=== PATIENT | male | born 1985 | race Caucasian/White ===

== ENCOUNTER 2018-06-09 09:00 | Outpatient (RCR) | payer OTHER, BC, SELFPAY ==
--- NOTE | 2018-05-09 09:59 | [facility].PTOPEV ---
PT Outpatient Evaluation Rehab PT Outpatient Evaluation Start: 05/09/18 09:13 Freq: Status: Active Protocol: Document 05/09/18 09:14 [email or web address] (Rec: 05/09/18 09:59 [email or web address] [id number]) Electronically Signed By Kenroy Irby, PT 05/09/18 09:14 Outpatient Therapy Subjective History Subjective History Pt reports spraining L ankle while working on 04/14/18. Pt reports stepping in a hole while walking through a yard, and rolling L ankle 'inward'. Pt reports L ankle has improved over the last ~3 weeks, however, still has lingering s/s around ATF and anterior tib-fib area. Chief Complaint Pain Stiff Swelling Weakness Symptom Type Ache Sharp Dull Symptoms Relieved By Rest/Positioning Ice Symptoms Aggravated By Standing Physical Activity Walking Prior Functional Limitations None Current Functional Limitations Standing Walking Stairs Balance Symptom Description Constant but Variable Level of pain today (0-10) 2 Pain scale - at its best (0-10) 1 Pain scale - at its worst (0-10) 7 Ankle/Foot Eval Gait Observation General Gait Pattern Observation Antalgic Gait Decrease Weight Bear (L) Palpation Tenderness left Ankle/Foot Palpation Findings Tenderness Ankle/Foot Palpation Overall Comment 3/4 ATF TTP positive CF TTP positive ROM right Ankle/Foot ROM Reason Not Measured Within Functional Limits left Ankle/Foot Dorsiflexion w/Knee Extended 0-5 Active Range Motion (degrees) Ankle/Foot Plantar Flexion Active Range 0-45 of Motion (degrees) Ankle/Foot Eversion Active Range of 0-10 Motion (degrees) Ankle/Foot Inversion Active Range of 0-25 Motion (degrees) Ankle/Foot ROM Limitations Soft Tissue Tightness Pain MMT right Ankle Dorsiflexion Strength Grade 5 Normal Ankle Plantarflexion Strength Grade 5 Normal Foot Eversion Strength Grade 5 Normal Foot Inversion Strength Grade 5 Normal left Ankle Dorsiflexion Strength Grade 4- Good- Ankle Plantarflexion Strength Grade 4 Good
--- NOTE | 2018-06-06 10:27 | [facility]H.RHREAS ---
Rehab Reassessment Rehab OP Re-assessment Start: 06/06/18 09:16 Freq: Status: Active Protocol: Document 06/06/18 09:57 [email or web address] (Rec: 06/06/18 10:27 [email or web address] [id number]) Electronically Signed By Kenroy Irby, PT 06/06/18 09:57 Rehab Re-assessment Subjective Subjective PT REPORTS 2-5/10 L ANKLE PAIN ON VAS, AND FEELS 75% BETTER SINCE I EVAL Objective Objective Notes AROM: L ANKLE DF 0-15, PF 0-50 , INV 0-35, EXR 0-15 MMT: L ANKLE WFL ALL DIRECTIONS TTP: L ANKLE CF 2/4 EDEMA: FIG 8: 66CM, TALOCRURAL 30CM Assessment Progress Assessment Progressing as Expected Assessment Notes PT W/IMPROVED ROM, STRENGTH, AND SWELLING Patient goals met STG'S 04/21 LTG'S 12/23 Goals Not Met STG 11/21, LTG'S 04/22 Plan Plan PT TO CONTINUE W/SKILLED P.T. TO MAKE FURTHER IMPROVEMENTS W /AROM, STRENGTH, AND TTP TO ALLOW FOR OPTIMAL FUNCTION Frequency of Therapy 2-3X/WK Duration of therapy 3-4WKS Time and Billing Re-Eval Time 15 Re-Eval Billing Units 1 PHYSICIAN CERTIFICATION: I certify the specified therapy services for Carmine Oneal are required, authorized, and reviewed every 30 days.
== END 2018-06-09 09:01 | disposition home or self-care (01) ==
LOC: PT 09:00
PROVIDERS: Family Provider Family Medicine; PCP Family Medicine; Visit Provider Podiatrist
DX: S93.492D Sprain of other ligament of left ankle, subsequent encounter (principal); M25.572 Pain in left ankle and joints of left foot
CPT/HCPCS: 97010; 97014; 97016; 97033; 97035; 97110; 97112; 97163; 97164; G0283